=== PATIENT | male | born 1980 | race Caucasian/White ===

== ENCOUNTER 2017-05-21 04:48 | Emergency (ER) | payer SELFPAY ==
[~2017-05-21] VITALS: Ht 182.9 cm; Wt 113.6 kg
[~2017-05-21 04:48] MED LIST: AMOX500C PO; AUGM875T PO; BACT800T5 PO; CEPH-460 PO; CORT1SOL EACH EAR; IBUP1TAB7 PO
[2017-05-21 04:53] VITALS: BP 146/89; PULSE 97; RESP 16; TEMP 98.7; O2SAT 95
[2017-05-21 05:05] VITALS: BP 146/84; PULSE 97; RESP 16; TEMP 98.7; O2SAT 95
[2017-05-21] MEDS ORDERED: CEPH-460 PO (05:12)
[2017-05-21] MEDS ORDERED: BACT800T5 PO (05:12)
--- NOTE | 2017-05-21 05:14 | PD ---
HPI Chief Complaint: rash Time Seen by Provider: 05:04 Travel History International Travel<30 days: No Contact w/Intl Traveler<30days: No Traveled to known affect area: No History of Present Illness HPI 37-year-old male presents to the emergency department by private transportation for complaint of rash to the dorsum of his right hand. Patient is right- handed. Patient does not have diabetes. Patient has had the rash since November. Patient has appointment with the management liaison next Tuesday. Patient's had no fever no chills. Patient's had no ascending erythema. Patient's had no axillary lymphadenopathy. Patient's had no specific injury. Rashes to the dorsum of the hand and has some small areas as though they've been excoriated. Patient states when he scratches his and he frequently gets an infection. Patient was seen in March for the same rash although at the time it was much worse in the rashes now. Patient states he is having recurrent rashes had a complete emergency department early to try to prevent the rash from getting worse. Patient states he responded very well to Bactrim in the past. Patient denies any previous MRSA infections. Patient states his tetanus status is current. 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 [facility] Past Medical History Narrative Medical Bipolar disorder hand surgery childhood skull fracture; tobacco use marijuana use; nursing notes reviewed Arthritis: No Asthma: No Autoimmune Disease: No Blood Disorders: No Bipolar Disorder: Yes Anxiety: Yes Depression: Yes Heart Rhythm Problems: No Cancer: No Cardiovascular Problems: No High Cholesterol: No Chest Pain: No Congestive Heart Failure: No COPD: No Cerebrovascular Accident: No Diabetes: No Diminished Hearing: No Endocrine: No Gastrointestinal Disorders: Yes (GASTRITIS) GERD: No Glaucoma: No Genitourinary: Yes Headaches: Yes Hepatitis: No Hiatal Hernia: No Heparin Induced Thrombocytopen: No Hypertension: No Immune Disorder: No Implanted Vascular Access Dvce: Yes Kidney Stones: No Musculoskeletal: Yes (RIGHT HAND & RIGHT ANKLE SURGERIES) Neurologic: Yes Psychiatric: Yes Reproductive: No Respiratory: Yes Integumentary: Yes (STAPH INFECTION S/P ORTHO SURGERY 1997) Immunizations Current: Yes Migraines: No Myocardial Infarction: No Renal Failure: No Seizures: No Sickle Cell Disease: No Sleep Apnea: No Thyroid Disease: No Ulcer: No : 0 Para: 0 Miscarriage: 0 : 0 Past Surgical History Abdominal Surgery: No Appendectomy: No Body Medical Devices: ABOVE RIGHT ANKLE PT HAS AN IMPLANTED PLATE Cardiac Surgery: No Cholecystectomy: No Ear Surgery: No Endocrine Surgery: No Eye Surgery: No Genitourinary Surgery: No Gynecologic Surgery: No Neurologic Surgery: Yes (SKULL FX CHILD) Oral Surgery: No Pacemaker: No Thoracic Surgery: No Other Surgery: Yes (RIGHT HAND SURGERY 10 YEARS AGO) Social History Alcohol Use: No Tobacco Use: Yes Substance Use: Yes (MARIJUANA OCCASS) Allergies-Medications (Allergen,Severity, Reaction): Coded Allergies: No Known Allergies (Verified , 04/12/16) Reported Meds & Prescriptions Reported Meds & Active Scripts Active Keflex (Cephalexin) 500 Mg Cap 500 Mg PO Q6H 10 Days Bactrim DS (Sulfamethoxazole-Trimethoprim) 800-160 Mg Tab 1 Tab PO BID 10 Days Cortisporin HC Otic Drops (Scjbabgj-Hecludjng-AX Otic Drops) 3.5-10,000-1 Mg- Units-% Soln 4 Drop EACH EAR QID Augmentin (Amoxicillin-Clavulanate) 875-125 mg Tab 875 Mg PO BID not for use in CrCl <30 ml/min. Ibuprofen 800 Mg Tab 800 Mg PO TID Amoxicillin 500 Mg Cap 500 Mg PO TID Review of Systems Except as stated in HPI: all other systems reviewed are Neg Physical Exam Narrative GENERAL: Well-developed well-nourished female in no acute distress no respiratory distress SKIN: Warm and dry. Attention dorsum of right hand erythema with few excoriated abrasions and central pallor without induration increased warmth pustules vesicles and demonstrates full range of motion of flexion extension and abduction and abduction intact with 2 second capillary refill sensory exam intact and motor strength 5 over 5. Thumb apposition intact. HEAD: Normocephalic. EYES: No scleral icterus. No injection or drainage. NECK: Supple, trachea midline. No JVD or lymphadenopathy. CARDIOVASCULAR: Regular rate and rhythm without murmurs, gallops, or rubs. RESPIRATORY: Breath sounds equal bilaterally. No accessory muscle use. GASTROINTESTINAL: Abdomen soft, non-tender, nondistended. MUSCULOSKELETAL: No cyanosis, or edema. BACK: Nontender without obvious deformity. No CVA tenderness. Data Data Last Documented VS Vital Signs Date Time Temp Pulse Resp B/P (MAP) Pulse Ox O2 Delivery O2 Flow Rate FiO2 05/21/17 04:53 98.7 97 16 146/89 (108) 95 MDM Medical Decision Making Medical Screen Exam Complete: Yes Emergency Medical Condition: Yes Medical Record Reviewed: Yes Differential Diagnosis Cellulitis, dermatitis, tenia, eczema; also to consider tenosynovitis Narrative Course Patient with recurrent cellulitic rash with component of fungal appearance no vesicles no pustules no sign for tenosynovitis. Patient will be started on oral antibiotic and encouraged to use topical over- the-counter antifungal cream twice daily and to keep his appointment with dermatology as scheduled Diagnosis Primary Impression: Cellulitis of right hand Referrals: Microbial Specialist 1 week Additional Instructions: Keep hand clean and dry recommend use of glove at work complete course of antibiotic as prescribed use topical antifungal such as Lotrimin sparingly twice daily to the back of the hand keep appointment with management liaison return to the emergency department for a concerns or change in condition Med/Other Pt SpecificInfo: Prescription(s) given Scripts Sulfamethoxazole-Trimethoprim (Bactrim DS) 800-160 Mg Tab 1 TAB PO BID for Infection, #20 TAB 0 Refills Prov: Betina Miranda MD 05/21/17 Cephalexin (Keflex) 500 Mg Capsule 500 MG PO Q6H for Infection for 10 Days, #40 CAP 0 Refills Prov: Betina Miranda MD 05/21/17 Disposition: 01 DISCHARGE HOME Condition: Stable Betina Miranda MD May 21, 2017 05:14
== END 2017-05-21 05:41 | disposition home or self-care (01) ==
LOC: PHED 04:48
DX: L03.113 Cellulitis of right upper limb (principal); Z72.0 Tobacco use; Z86.59 Personal history of other mental and behavioral disorders; Z87.19 Personal history of other diseases of the digestive system; Z87.448 Personal history of other diseases of urinary system; Z87.39 Personal history of other diseases of the musculoskeletal system and connective tissue; Z86.69 Personal history of other diseases of the nervous system and sense organs; Z87.2 Personal history of diseases of the skin and subcutaneous tissue
CPT/HCPCS: 99284